=== PATIENT | female | born 1955 | race Caucasian/White ===

== ENCOUNTER 2024-10-05 09:10 | Day surgery (SDC) | payer MEDICARE, MEDICAID ==
[~2024-10-05] VITALS: Ht 160 cm; Wt 120.9 kg
[~2024-10-05 09:10] MED LIST: ATOR40TA PO; FLUO-331 PO; LOSA25TA41 PO; SEMA2PEN SUBCUT; TRAM50TA2 PO
[2024-10-05 09:36] VITALS: BP 153/81; PULSE 80; RESP 18
[2024-10-05] MEDS ORDERED: fentaNYL/PF 50MCG/1 ML 2ML syringe ONE (10:07)
[2024-10-05] MEDS ORDERED: midazolam 1 mg/ML 2ml injection ONE (10:08)
[2024-10-05] MEDS ORDERED: propofol inj 20 ML IV ONE (10:08)
[2024-10-05 10:40] VITALS: BP 122/60; PULSE 73; RESP 19; O2SAT 100
[2024-10-05 10:50] VITALS: BP 117/61; PULSE 70; RESP 15; O2SAT 100
[2024-10-05 11:00] VITALS: BP 107/53; PULSE 66; RESP 21; O2SAT 97
[2024-10-05 11:10] VITALS: BP 113/59; PULSE 68; RESP 20; O2SAT 99
== END 2024-10-05 11:11 | disposition home or self-care (01) ==
LOC: OR 09:10
PROVIDERS: ATTEND Internal Medicine Gastroenterology
DX: Z12.11 Encounter for screening for malignant neoplasm of colon (principal); K57.30 Diverticulosis of large intestine without perforation or abscess without bleeding; I10 Essential (primary) hypertension; E11.9 Type 2 diabetes mellitus without complications; E66.9 Obesity, unspecified; G47.30 Sleep apnea, unspecified; Z90.49 Acquired absence of other specified parts of digestive tract; Z98.890 Other specified postprocedural states; Z68.42 Body mass index [BMI] 45.0-49.9, adult
CPT/HCPCS: A4620; G0121; J2250; J2704; J3010; J7030; Z7512; 45378